=== PATIENT | female | born 1990 | race Caucasian/White ===

== ENCOUNTER 2023-11-20 14:46 | Outpatient (CLI) | payer OTHER ==
[~2023-11-20] VITALS: Ht 165.1 cm; Wt 75.0 kg
[~2023-11-20 14:46] MED LIST: ALBUTEROL SULFATE 2.5MG/0.5ML INH NEB SOLN INH PRN; EPINEPHrine INJ 1 MG/ML 1ML AMP IM PRN; diphenhydrAMINE 50MG/ML VIAL IV PRN; methylPREDNISolone 125MG 2ML VIAL IV PRN
[2023-11-20 15:00] VITALS: BP 120/65; O2SAT 98
[2023-11-20] MEDS ORDERED: NS 1,000 ML IV SCH (15:00)
[2023-11-20] MEDS: FERRIC CARBOXYMALTOSE INJ 750 MG in NS 250 ML (>50kg) IV ONE (15:10)
== END 2023-11-20 16:40 ==
LOC: M INFU 14:46
PROVIDERS: ATTEND Neurological Surgery
DX: E61.1 Iron deficiency (principal)
CPT/HCPCS: 96365; J1439

== ENCOUNTER 2023-11-27 13:10 | Outpatient (CLI) | payer OTHER ==
[~2023-11-27] VITALS: Ht 165.1 cm; Wt 72.7 kg
[~2023-11-27 13:10] MED LIST changes: +NS 1,000 ML IV SCH
[2023-11-27 13:15] VITALS: BP 125/77; O2SAT 100
[2023-11-27] MEDS: FERRIC CARBOXYMALTOSE INJ 750 MG in NS 250 ML (>50kg) IV ONE (13:22)
[2023-11-27 14:30] VITALS: BP 114/78; O2SAT 100
== END 2023-11-27 14:35 ==
LOC: M INFU 13:10
PROVIDERS: ATTEND Neurological Surgery
DX: D50.9 Iron deficiency anemia, unspecified (principal)
CPT/HCPCS: 96365; J1439